=== PATIENT | male | born 1975 | race Caucasian/White ===

== ENCOUNTER 2023-07-13 13:37 | Outpatient (CLI) | payer OTHER, SELFPAY ==
--- NOTE | ~2023-07-13 | PE_ITS ---
EXAMINATION: PET_PETPSMAST_PT DATE: 07/13/2023 15:52 INDICATION: Prostate cancer TECHNIQUE: 8.148 mCi of pipflufolastat F-18 (18-F-DCFPyL) was administered i.v. Low dose computed to mography (CT) images were acquired from the base of the brain to the base of the brain to the proxima l thighs for attenuation correction and anatomic localization. Positron emission tomography (PET) lilli ges were acquired in the same distribution beginning 86 minutes after injection. Images including fus ed PET/CT images were reconstructed in axial, coronal, and sagittal planes. Automated exposure contro l technique was employed. The dose-length product was 960.08mGy-cm. COMPARISON: None FINDINGS: Head/neck: Typical pattern of symmetric physiologic increased activity in the lacrimal, parotid and submandibula r glands as well as along the mucosa of the nasal and oral cavities, the lake-, naso- and hypopharynx, the glottis and esophagus. There is also a typical symmetric pattern of tiny foci of mild physiologi c uptake at the neural ganglia and several of the lower cervical neural foramina. No pathologically e nlarged cervical lymphadenopathy or suspicious foci of increased uptake in the visualized head or nec k. Chest: Mild elevation right hemidiaphragm with mild atelectasis in the right lower lobe. Additional mild ate lectasis at the lingula. Small pneumatocele in the left lower lobe. No suspicious pulmonary nodules, pneumonia, pulmonary edema or pleural effusion. Heart size is normal. No pericardial effusion. Minima l atherosclerotic coronary artery calcification. Thoracic aorta is normal in caliber. No pathological ly enlarged or abnormally PSMA avid thoracic lymphadenopathy. Abdomen/pelvis/proximal thighs: Physiologic renal accumulation and excretion of activity in the kidneys, bladder and along portions o f ureters. Normal degree and slightly heterogenous pattern of increased uptake throughout the liver a nd spleen without radiologic correlate or dominant PSMA avid lesion. The gallbladder, pancreas and bi lateral adrenal glands are normal. Moderate uptake scattered throughout the bowels with typical duode nal and proximal jejunal predominance and without radiologic correlate, also likely physiologic. Typi kiley symmetric pattern of tiny foci of mild physiologic uptake likely at the neural ganglia at several bilateral sacral and lower lumbar neural foramina. There is a 1-1.5 cm region of prominent PSMA upta ke with maximal SUV of 3.8 at the left peripheral zone of the prostate which is without correlate on the CT images and likely represents the reported primary prostate cancer. No other abnormal foci of i ncreased uptake or pathologically enlarged lymphadenopathy in the abdomen, pelvis or proximal thighs. Musculoskeletal: Mild to moderate osteoarthritis at the bilateral hip and acromioclavicular joints. Otherwise mild sca ttered degenerative skeletal changes. Tiny bone island at the left femoral head. No suspicious lytic, blastic or PSMA avid bone lesions. IMPRESSION: 1. Focus of prominent PSMA uptake at the left peripheral zone of the prostate likely corresponding to the reported primary prostate cancer. No evident metastatic disease. Reviewed, dictated and finalized at location A. IMPRESSION: 1. Focus of prominent PSMA uptake at the left peripheral zone of the prostate l ikely corresponding to the reported primary prostate cancer. No evident metasta tic disease.
== END 2023-07-13 13:38 | disposition home or self-care (01) ==
PROVIDERS: PCP Family Medicine; Visit Provider Urology
DX: C61 Malignant neoplasm of prostate (principal)
CPT/HCPCS: 78815; A9595